=== PATIENT | male | born 1970 | race Caucasian/White ===

== ENCOUNTER 2024-04-03 07:04 | Inpatient (IN) | payer BC, SELFPAY ==
[2024-04-03] VITALS (20 sets, daily range): BP systolic 125–146; BP diastolic 71–95; PULSE 75–101; TEMP 36.5–36.9; O2SAT 89–98; BMI 37.0; BMI 35.2
--- NOTE | 2024-04-03 07:22 | ECG_ITS ---
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
--- NOTE | 2024-04-03 07:22 | XR_ITS ---
The [address] [address] Patient Name: ОЛЬГА KEBEDE MRN: [id number] date: 1970 Sex: M Assigned Patient Location: ER Current Patient Location: ED.MAIN Accession/Order Number: [id number] Exam Date: 04/03/2024 07:30 Report Date: 04/03/2024 07:54 At the request of: GEGE SZYMANSKI Procedure: XR chest 1V EXAMINATION: XR chest 1V HISTORY: SOB COMPARISON: No relevant comparison available. FINDINGS: LUNGS: Underexpanded lungs with bibasilar opacities, mild on right, moderate on left. Elevated left hemidiaphragm. VASCULATURE: No increased pulmonary vasculature. PLEURA: No pneumothorax, effusion, or pleural thickening. CARDIAC: No cardiomegaly or cardiac silhouette abnormality. MEDIASTINUM: No visible mass or adenopathy. BONES: No fracture or visible bone lesion. OTHER: Negative. XR/XR chest 1V IMPRESSION: 1. Moderate left, mild right basilar infiltrates versus atelectasis. Infectious etiology is favored. Electronically authenticated by: RAMAN MEADOWS Date: 04/03/2024 07:54
--- NOTE | 2024-04-03 07:23 | ED.SOB1 ---
HPI - SOB/Dyspnea General Chief Complaint: Shortness of Breath/Dyspnea Stated Complaint: SOB, SIDE PAINS, IS LUNG PATIENT Time Seen by Provider: 04/03/24 07:18 History of Present Illness HPI Narrative: 53-year-old male presents for shortness of breath. He has had 4 days of slowly progressive cough and shortness of breath. He has been coughing up green phlegm. He states he is very susceptible to bacterial infections and last year had to be intubated and he states he almost . He also has a history of a collapsed lung which almost killed him as well. He has not had a known fever and has not had hemoptysis. He quit smoking in 1995. He states he has a lung condition but does not know the name but states he was told it is not COPD. Related Data Home Medications ?Medication ?Instructions ?Recorded ?Confirmed albuterol sulfate 2.5 mg/3 mL 2.5 mg inhalation BID 04/03/24 04/03/24 (0.083 %) solution for nebulization montelukast 10 mg tablet 20 mg PO DAILY 04/03/24 04/03/24 prednisone 20 mg tablet 20 mg PO DAILY 04/03/24 04/03/24 Allergies Allergy/AdvReac Type Severity Reaction Status Date / Time Penicillins AdvReac Mild Rash Verified 04/03/24 07:40 Review of Systems ROS Narrative A ten point review of systems is negative except as noted above. Exam Narrative Exam Narrative: Nurses note and vital signs reviewed and patient is not hypoxic. General: The patient appears in no acute respiratory distress, he does appear mildly dyspneic Skin: Warm, dry, no pallor noted. There is no rash noted. Head: Normocephalic, atraumatic Eye: Normal conjunctiva, no drainage Ears, Nose, Mouth, and Throat: oral mucosa is moist. Nares patent. Cardiovascular: Regular Rate and Rhythm Respiratory: A few rhonchi are present, breath sounds seem diminished on the left side Back: non-tender GI: Soft and nontender Musculoskeletal: The patient has no evidence of calf tenderness, no pitting edema, symmetrical pulses noted bilaterally Neurological: A&O, normal speech Psychiatric: Cooperative Constitutional Vital Signs, click to edit/add: Last Vital Signs Temp 98.5 F 04/03/24 07:34 Pulse 92 H 04/03/24 07:54 Resp 25 H 04/03/24 07:54 BP 133/76 04/03/24 07:34 Pulse Ox 98 04/03/24 07:54 O2 Del Method Room Air 04/03/24 07:54 Course Vital Signs Vital signs: Vital Signs Temperature 98.5 F 04/03/24 07:34 Pulse Rate 94 H 04/03/24 07:34 Respiratory Rate 24 H 04/03/24 07:34 Blood Pressure 133/76 04/03/24 07:34 Pulse Oximetry 95 04/03/24 07:34 Oxygen Delivery Method Room Air 04/03/24 07:34 Temperature 98.5 F 04/03/24 07:34 Pulse Rate 92 H 04/03/24 07:54 Respiratory Rate 25 H 04/03/24 07:54 Blood Pressure 133/76 04/03/24 07:34 Pulse Oximetry 98 04/03/24 07:54 Oxygen Delivery Method Room Air 04/03/24 07:54 MDM - SOB/Dyspnea MDM Narrative Medical decision making narrative: Pneumonia is identified on his x-ray, no evidence of pneumothorax. Blood cultures were obtained and then he was given IV Rocephin and Zithromax. Initial lactic acid is 2.4. He has an extensive history of pneumonia and pneumothorax and intubation and spent approximately 40 days in the hospital for these issues last fall. There is no previous chest x-ray for comparison purposes. Findings were discussed with the patient and he is being admitted for IV antibiotics. Differential Diagnosis Differential diagnosis: Likely acute exacerbation of chronic obstructive airways disease, congestive heart failure, community acquired pneumonia and other (Pneumothorax) Lab Data Attestation: I reviewed the patient's lab results. Labs: Lab Results 04/03/24 04/03/24 Range/Units 07:25 07:27 WBC 14.5 H (4.0-11.0) 10^3/uL RBC 3.61 L (4.70-6.10) 10^6/uL Hgb 11.2 L (14.0-18.0) g/dL Hct 34.8 L (42.0-54.0) % MCV 96.4 H (80.0-94.0) fL MCH 31.0 (25.9-34.0) pg MCHC 32.2 (29.9-35.2) g/dL RDW 12.9 (11.0-15.0) % Plt Count 338 (150-450) 10^3/uL MPV 10.8 (9.5-13.5) fL Neut % (Auto) 84.0 H (43.0-75.0) % Lymph % (Auto) 6.2 L (20.5-60.0) % [place] % (Auto) 8.5 (1.7-12.0) % Eos % (Auto) 0.5 L (0.9-7.0) % Baso % (Auto) 0.3 (0.2-2.0) % Neut # (Auto) 12.2 H (1.4-6.5) 10^3/uL Lymph # (Auto) 0.9 L (1.2-3.8) 10^3/uL [place] # (Auto) 1.2 H (0.3-0.8) 10^3/uL Eos # (Auto) 0.1 (0.0-0.7) 10^3/uL Baso # (Auto) 0.1 (0.0-0.1) 10^3/uL Abs Immat Gran (auto) 0.07 H (0.00-0.03) 10^3/uL Imm/Tot Granulo (auto) 0.5 (0.0-0.5) % Sodium 137 (136-145) mmol/L Potassium 3.8 (3.5-5.1) mmol/L Chloride 98 (98-107) mmol/L Carbon Dioxide 28.7 (21.0-32.0) mmol/L Anion Gap 14.1 BUN 14.0 (7.0-18.0) mg/dL Creatinine 1.31 H (0.70-1.30) mg/dL Est GFR ( Amer) >60 (>=60) Est GFR (Non-Af Amer) 57 L (>=60) BUN/Creatinine Ratio 10.7 Glucose 164 H (74-106) mg/dL Lactate 2.4 H* (0.4-2.0) mmol/L Calcium 8.9 (8.5-10.1) mg/dL Troponin I High Sens 26.8 (4.0-76.1) pg/mL SARS-CoV-2 Ag (CV2AG) Negative (NEGATIVE) Imaging Data Chest x-ray: Radiologist's impression: ITS Impressions Chest X-Ray 04/03/24 07:22 IMPRESSION: 1. Moderate left, mild right basilar infiltrates versus atelectasis. Infectious etiology is favored. Electronically authenticated by: RAMAN MEADOWS Date: 04/03/2024 07:54 ECG Data Attestation: I personally reviewed and interpreted this ECG as follows: (EKG on my interpretation shows sinus rhythm with a rate of 97 and no acute change) Discharge Plan Discharge Chief Complaint: Shortness of Breath/Dyspnea Clinical Impression: Pneumonia Patient Disposition: Admitted As Inpatient Time of Disposition Decision: 08:04 Condition: Fair
[2024-04-03] MEDS: CEFTRIAXONE 1,000 MG in 0.9 % SODIUM CHLORIDE 50 ML 100 MG IV (07:44)
[2024-04-03 07:49] LABS: Basophils Absolute Auto 0.1 10^3/uL (0.0-0.1); Basophils Percent Auto 0.3 % (0.2-2.0); Eosinophils Absolute Auto 0.1 10^3/uL (0.0-0.7); Eosinophils Percent Auto 0.5 % (0.9-7.0); Hematocrit 34.8 % (42.0-54.0); Hemoglobin 11.2 g/dL (14.0-18.0); Immature Granulocytes Abs Auto 0.07 10^3/uL (0.00-0.03); Immature Granulocytes Pct Auto 0.5 % (0.0-0.5); Lymphocytes Absolute Auto 0.9 10^3/uL (1.2-3.8); Lymphocytes Percent Auto 6.2 % (20.5-60.0); Mean Corpuscular HGB Conc 32.2 g/dL (29.9-35.2); Mean Corpuscular Volume 96.4 fL (80.0-94.0); Mean Platelet Volume 10.8 fL (9.5-13.5); Monocytes Absolute Auto 1.2 10^3/uL (0.3-0.8); Monocytes Percent Auto 8.5 % (1.7-12.0); Neutrophils Absolute Auto 12.2 10^3/uL (1.4-6.5); Platelet Count 338 10^3/uL (150-450); Red Blood Count 3.61 10^6/uL (4.70-6.10); Red Cell Distribution Width 12.9 % (11.0-15.0); White Blood Count 14.5 10^3/uL (4.0-11.0)
[2024-04-03] MEDS: ALBUTEROL SULFATE 2.5 MG/3 ML VIAL NEB IH (07:53)
[2024-04-03 08:01] LABS: Anion Gap 14.1; BUN Creatinine Ratio 10.7; Calcium 8.9 mg/dL (8.5-10.1); Carbon Dioxide 28.7 mmol/L (21.0-32.0); Chloride 98 mmol/L (98-107); Estimated GFR (African America >60 (>=60); Estimated GFR (Non-African Ame 57 (>=60); Glucose 164 mg/dL (74-106); Potassium 3.8 mmol/L (3.5-5.1); Sodium 137 mmol/L (136-145); Troponin I High Sensitivity 26.8 pg/mL (4.0-76.1)
[2024-04-03 08:02] LABS: Lactate/Lactic Acid 2.4 mmol/L (0.4-2.0)
[2024-04-03 08:04] LABS: Internal Control Within Normal Limits; SARS-CoV-2 Ag NEGATIVE (NEGATIVE)
[2024-04-03] MEDS: AZITHROMYCIN 500 MG in 0.9 % SODIUM CHLORIDE 250 ML 250 MG IV (08:12)
--- NOTE | 2024-04-03 08:24 | PM.HP ---
HPI H&P: HPI History of Present Illness Chief complaint: PNEUMONIA Narrative: Patient is a 53 y.o white male with past medical history of Aspergillus, Asthma and chronic inflammation. He was in [facility] in [place] in jun 2023 after having a spontaneous pneumothorax on the left, which led to a chest tube complication and further pneumonia and aspergillus findings. She spend about 20 days at [facility], and was transferred to [facility] for another 20days. Since that time, he denies hospitalizations. He follows regularly with Dr. Romero of Pulmonary in [place]. I have personally called Dr. Romero's office but he is on vacation this week. Patient has been getting Xolair every 2 weeks, he takes daily singular and prednisone for an asthma/inflammatory asthma type. He notes he was treated for 3 months on an antifungal for his Aspergillus after hospitalization in Jun, finishing that in November. He is currently on a job site here in [place]. He works on the [employer]. He developed a cough, productive over the weekend. Yesterday worked all day and became short of breath, started having left back and side pain, denies fevers or chills but says he sweats easily. He came to the ER early this morning. He has not been using his albuterol inhaler. ER findings: CXR: Left > Right opacities signifying pneumonia, WBC's 14.5, HB 11.2 Cr 1.31, Lactate elevated 2.4, normal Trop 26. Patient was given nebulizer treatment, rocephin and azithromycin and admitted to the hospitalist service for further plan of care. At the time of admission patient is short of breath when talking. He had active green sputum production after coughing and became diaphoretic after coughing. He denies fevers or chills. Still says the left side of chest wall and back are having pain with coughing. He denies chest pain/midsternal. No n/v/d. Opioid HPI Opioid Management Most Recent Pain and Opioid Data: Last Pain Assessment 04/03/24 08:58 Last ORT Total Score 4 04/03/24 08:58 Last ORT Risk Category Moderate Risk 04/03/24 08:58 Review of Systems ROS Narrative ROS: a complete review of systems were reviewed with patient and are positive as below or listed in History of Chief Complaint. General: no fever, chills, night sweats Head: no headache, trauma, visual changes, nausea or vomiting Skin: no reported rashes, itching or sores Eyes: no blurriness of vision Ears: no reported hearing loss, vertigo, earache, or tinnitus Throat: no sore throat, hoarseness, swelling of neck, or tongue pain Heart: no chest pain, but left sided chest wall pain, low back on left Lungs: shortness of breath and productive cough GI: no diarrhea or vomiting/nausea Urinary: no urinary urgency, frequency or pain Neuro: no numbness or tingling HEM: no bleeding issues or bruising ENDO: no thyroid problems Psych: no anxiety or depression [facility] Medical History (Updated 04/03/24 @ 11:21 by Jada Lu DO) Aspergillosis, unspecified ?B44.9 - Aspergillosis, unspecified (ICD-10) Collapse, lung ?J98.19 - Other pulmonary collapse (ICD-10) 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.0 - Bronchitis and pneumonitis due to chemicals, gases, fumes and vapors (ICD-10) Allergic asthma ?J45.909 - Unspecified asthma, uncomplicated (ICD-10) Surgical History H/O hernia repair ?Z98.890 - Other specified postprocedural states (ICD-10) ?Z87.19 - Personal history of other diseases of the digestive system (ICD-10) Family History Father Family history of cancer Family history of hypertension Family history of myocardial infarction Family history of stroke Social History Within the past year, how often did you have a drink containing alcohol: monthly or less Smoking status: Former smoker Non-prescribed substance use: denies use Highest level of school completed/degree received: high school graduate Meds Home Medications and Allergies Home Medications ?Medication ?Instructions ?Recorded ?Confirmed ?Type albuterol sulfate 2.5 mg/3 mL 2.5 mg inhalation BID 04/03/24 04/03/24 History (0.083 %) solution for nebulization montelukast 10 mg tablet 10 mg PO .QHS 04/03/24 04/03/24 History omalizumab 150 mg subcutaneous 225 mg subcut .twice monthly 04/03/24 04/03/24 History solution (Xolair) prednisone 20 mg tablet 20 mg PO DAILY 04/03/24 04/03/24 History Allergies Allergy/AdvReac Type Severity Reaction Status Date / Time Penicillins AdvReac Mild Rash Verified 04/03/24 07:40 Exam Narrative Exam Narrative: General: Patient is alert, and oriented to person, place and time with normal affect, proper hygiene, patient is short of breath when conversing and is diaphoretic after coughing. Skin: no visible rashes, or ulcers Head: atraumatic, acephalic Eyes: PERRLA, no nystagmus present, conjunctiva clear, no scleral icterus Ears: normal gross auditory acuity Neck: no masses palpated, normal thyroid Heart: Normal rate and rhythm, no murmurs/rubs/gallops Lungs: audible wheezes, with diminished breath sounds LLL Abdomen: Normal audible bowel sounds, no distension, No palpable masses, no organomegaly, no rebound/guarding/ or rigidity Musculoskeletal: no swelling bilateral lower extremities Neuro: CN II-X grossly intact Constitutional Vital Signs, click to edit/add: Last Vital Signs Temp 98.5 F 04/03/24 07:34 Pulse 92 H 04/03/24 07:54 Resp 25 H 04/03/24 07:54 BP 138/95 H 04/03/24 08:00 Pulse Ox 98 04/03/24 07:54 O2 Del Method Room Air 04/03/24 07:54 Results Labs Labs: Short CBC 04/03/24 Range/Units 07:25 WBC 14.5 H (4.0-11.0) 10^3/uL Hgb 11.2 L (14.0-18.0) g/dL Hct 34.8 L (42.0-54.0) % Plt Count 338 (150-450) 10^3/uL BMP 04/03/24 07:25 Sodium 137 Potassium 3.8 Chloride 98 Carbon Dioxide 28.7 BUN 14.0 Creatinine 1.31 H Glucose 164 H Calcium 8.9 Assessment and Plan Assessment and Plan (1) LLL pneumonia: Assessment and Plan: as seen on cxr L>R opacities. monitor oxygen saturations closely to maintain >90%. Duonebs scheduled q6 hours, pulmicort inh BID, as needed albuterol and OPEP. I have placed on levaquin 750mg daily and rocephin 1gram daily. Patient with leukocytosis and elevated lactate, tachycardia. Sputum culture ordered, blood cultures ordered. UA negative. I discussed with patient low threshold of checking chest CT given his history and severity of previous symptoms. Qualifiers: Pneumonia type: due to unspecified organism Qualified Code(s): J18.9 - Pneumonia, unspecified organism (2) Severe sepsis: Assessment and Plan: secondary to #1: leukocytosis 14.5, Tachycardia >100, elevated lactate 2.4. Given fluids in the ER, continue with IVF hydration. blood, sputum and UA obtained. Afebrile currently. continue Levoquin and Rocephin. 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 (3) Allergic asthma: Assessment and Plan: added Solumedrol 40mg q6 hours Qualifiers: Asthma severity: moderate Asthma persistence: persistent Asthma complication type: with acute exacerbation Qualified Code(s): J45.41 - Moderate persistent asthma with (acute) exacerbation (4) Aspergillosis, unspecified: Assessment and Plan: history of Plan patient is a full code Lovenox for DVT prophylaxis Patient is inpatient status and is expected to stay 2-3 days given severity of pneumonia, sepsis, and need for medical necessary treatment.
[2024-04-03] MEDS: LACTATED RINGER'S SOLUTION 1,000 ML 125 ML IV ×2 (09:55→18:16)
[2024-04-03] MEDS: ENOXAPARIN SODIUM 40 MG/0.4 ML SYRINGE SUBQ (09:56)
[2024-04-03] MEDS: LEVOFLOXACIN IN DEXTROSE 5 % 750 MG/150 ML IV.SOLN 100 MG IV (09:57)
[2024-04-03] MEDS: IPRATROPIUM/ALBUTEROL SULFATE 3 ML AMPUL.NEB IH ×3 (10:29→23:19)
[2024-04-03] MEDS: BUDESONIDE 0.5 MG/2 ML AMPULE NEB IH ×2 (10:29→23:19)
--- NOTE | 2024-04-03 10:56 | CM.NOTE ---
Rounds made with Dr. Lu. Mr. Sidhu reviews trigger events and symptoms with Dr. Lu. Dr. Lu discusses plan of care with Mr. Sidhu. Mr. Sidhu in agreement with plan.
[2024-04-03 11:01] LABS: Lactate/Lactic Acid 2.4 mmol/L (0.4-2.0)
[2024-04-03] MEDS: METHYLPREDNISOLONE SOD SUCC PF 40 MG/ML VIAL IVP ×3 (11:51→23:23)
[2024-04-03 13:43] LABS: Lactate/Lactic Acid 2.3 mmol/L (0.4-2.0)
[2024-04-03 16:03] LABS: Bilirubin Urine NEGATIVE (NEGATIVE); Blood Urine NEGATIVE (NEGATIVE); Clarity Urine CLEAR (CLEAR); Color Urine YELLOW (YELLOW); Glucose Urine UA 500 mg/dL (NEGATIVE); Ketones Urine NEGATIVE (NEGATIVE); Leukocyte Esterase Urine NEGATIVE (NEGATIVE); Nitrite Urine NEGATIVE (NEGATIVE); Protein Urine NEGATIVE (NEG/TRACE); Specific Gravity Urine 1.025 (1.005-1.025); Urobilinogen Urine 0.2 EU/dL (0.2-1.0)
[2024-04-03 17:25] LABS: Urine Microscopic Indicated NO
[2024-04-03] MEDS: MONTELUKAST SODIUM 10 MG TABLET PO (21:31)
[2024-04-03] MEDS: GUAIFENESIN 200 MG/DEXTROMETHORPHAN 20 MG 10 ML UNIT DOSE CUP PO (23:23)
[2024-04-04] VITALS (19 sets, daily range): BP systolic 130–149; BP diastolic 72–80; PULSE 75–105; TEMP 36.4–36.8; O2SAT 90–96
[2024-04-04] MEDS: LACTATED RINGER'S SOLUTION 1,000 ML 125 ML IV ×4 (01:29→23:35)
[2024-04-04] MEDS: IPRATROPIUM/ALBUTEROL SULFATE 3 ML AMPUL.NEB IH ×4 (05:00→23:20)
[2024-04-04] MEDS: METHYLPREDNISOLONE SOD SUCC PF 40 MG/ML VIAL IVP ×4 (05:20→23:35)
[2024-04-04 05:30] LABS: Basophils Percent Auto 0.1 % (0.2-2.0); Hematocrit 31.4 % (42.0-54.0); Immature Granulocytes Abs Auto 0.05 10^3/uL (0.00-0.03); Immature Granulocytes Pct Auto 0.6 % (0.0-0.5); Lymphocytes Absolute Auto 0.5 10^3/uL (1.2-3.8); Lymphocytes Percent Auto 5.7 % (20.5-60.0); Mean Corpuscular HGB Conc 31.8 g/dL (29.9-35.2); Mean Corpuscular Hemoglobin 30.6 pg (25.9-34.0); Mean Platelet Volume 10.7 fL (9.5-13.5); Monocytes Absolute Auto 0.5 10^3/uL (0.3-0.8); Neutrophils Percent Auto 88.6 % (43.0-75.0); Platelet Count 304 10^3/uL (150-450); Red Blood Count 3.27 10^6/uL (4.70-6.10); Red Cell Distribution Width 12.9 % (11.0-15.0); White Blood Count 9.1 10^3/uL (4.0-11.0)
[2024-04-04 05:50] LABS: Alanine Aminotransferase 17 U/L (16-63); Albumin Globulin Ratio 0.5; Albumin Level 2.3 g/dL (3.4-5.0); Alkaline Phosphatase 95 U/L (46-116); Anion Gap 10.3; Aspartate Amino Transferase 14 U/L (15-37); BUN Creatinine Ratio 13.7; Bilirubin Total 0.4 mg/dL (0.2-1.0); Calcium 8.7 mg/dL (8.5-10.1); Carbon Dioxide 27.8 mmol/L (21.0-32.0); Chloride 101 mmol/L (98-107); Estimated GFR (African America >60 (>=60); Estimated GFR (Non-African Ame >60 (>=60); Glucose 142 mg/dL (74-106); Potassium 4.1 mmol/L (3.5-5.1); Sodium 135 mmol/L (136-145); Total Protein 7.3 g/dL (6.4-8.2)
[2024-04-04] MEDS: ENOXAPARIN SODIUM 40 MG/0.4 ML SYRINGE SUBQ (08:09)
[2024-04-04] MEDS: CEFTRIAXONE 1,000 MG in 0.9 % SODIUM CHLORIDE 50 ML 100 MG IV (08:09)
--- NOTE | 2024-04-04 09:03 | PM.DS1 ---
DS: Providers Provider Date of admission: 04/03/24 08:30 Primary care physician: Non-Staff Physician DS: Diagnosis Discharge Diagnosis (1) LLL pneumonia: Qualifiers: Pneumonia type: due to unspecified organism Qualified Code(s): J18.9 - Pneumonia, unspecified organism (2) Severe sepsis: (3) Allergic asthma: Qualifiers: Asthma severity: moderate Asthma persistence: persistent Asthma complication type: with acute exacerbation Qualified Code(s): J45.41 - Moderate persistent asthma with (acute) exacerbation (4) Aspergillosis, unspecified: DS: Summary Time Spent with Patient Time attestation: Total time spent providing and/or coordinating discharge services: Exam Constitutional Vital Signs, click to edit/add: Last Vital Signs Temp 97.5 F L 04/04/24 04:26 Pulse 79 04/04/24 08:08 Resp 18 04/04/24 04:26 BP 133/80 04/04/24 04:26 Pulse Ox 96 04/04/24 05:02 O2 Del Method Nasal Cannula 04/04/24 05:02 O2 Flow Rate 2 04/04/24 05:02 DS: Data Data Completed and Pending Labs on day of discharge: Labs from last 24 hours 04/04/24 04/03/24 04/03/24 04:30 15:26 13:08 WBC 9.1 RBC 3.27 L Hgb 10.0 L Hct 31.4 L MCV 96.0 H MCH 30.6 MCHC 31.8 RDW 12.9 Plt Count 304 MPV 10.7 Neut % (Auto) 88.6 H Lymph % (Auto) 5.7 L [place] % (Auto) 5.0 Eos % (Auto) 0.0 L Baso % (Auto) 0.1 L Neut # (Auto) 8.0 H Lymph # (Auto) 0.5 L [place] # (Auto) 0.5 Eos # (Auto) 0.0 Baso # (Auto) 0.0 Abs Immat Gran (auto) 0.05 H Imm/Tot Granulo (auto) 0.6 H Sodium 135 L Potassium 4.1 Chloride 101 Carbon Dioxide 27.8 Anion Gap 10.3 BUN 14.0 Creatinine 1.02 Est GFR ( Amer) >60 Est GFR (Non-Af Amer) >60 BUN/Creatinine Ratio 13.7 Glucose 142 H Lactate 2.3 H* Calcium 8.7 Total Bilirubin 0.4 AST 14 L ALT 17 Alkaline Phosphatase 95 Total Protein 7.3 Albumin 2.3 L Globulin 5.0 Albumin/Globulin Ratio 0.5 Urine Color Yellow Urine Clarity Clear Urine pH 6.0 Ur Specific [place] 1.025 Urine Protein Negative Urine Glucose (UA) 500 A Urine Ketones Negative Urine Occult Blood Negative Urine Nitrite Negative Urine Bilirubin Negative Urine Urobilinogen 0.2 Ur Leukocyte Esterase Negative 04/03/24 10:30 WBC RBC Hgb Hct MCV MCH MCHC RDW Plt Count MPV Neut % (Auto) Lymph % (Auto) [place] % (Auto) Eos % (Auto) Baso % (Auto) Neut # (Auto) Lymph # (Auto) [place] # (Auto) Eos # (Auto) Baso # (Auto) Abs Immat Gran (auto) Imm/Tot Granulo (auto) Sodium Potassium Chloride Carbon Dioxide Anion Gap BUN Creatinine Est GFR ( Amer) Est GFR (Non-Af Amer) BUN/Creatinine Ratio Glucose Lactate 2.4 H* Calcium Total Bilirubin AST ALT Alkaline Phosphatase Total Protein Albumin Globulin Albumin/Globulin Ratio Urine Color Urine Clarity Urine pH Ur Specific [place] Urine Protein Urine Glucose (UA) Urine Ketones Urine Occult Blood Urine Nitrite Urine Bilirubin Urine Urobilinogen Ur Leukocyte Esterase Discharge Plan Discharge Condition: Fair Discharge Medications: No Action albuterol sulfate 2.5 mg /3 mL (0.083 %) solution for nebulization 2.5 mg inhalation BID montelukast 10 mg tablet 10 mg PO .QHS prednisone 20 mg tablet 20 mg PO DAILY Xolair 150 mg recon soln 225 mg subcut .twice monthly Print Language: Norwegian
[2024-04-04] MEDS: LEVOFLOXACIN IN DEXTROSE 5 % 750 MG/150 ML IV.SOLN 100 MG IV (09:44)
[2024-04-04] MEDS: BUDESONIDE 0.5 MG/2 ML AMPULE NEB IH ×2 (10:12→23:20)
--- NOTE | 2024-04-04 11:14 | P.PN_ITS ---
Progress Note: Subjective Subjective Interval history: Patient notes increased cough with productive sputum. He reports just feeling tired. Last night oxygen dropped to 89% and 2L NC was placed on him. He reports similar episodes when he was previously in the hospital and a sleep study was suggested. Still is short of breath with talking. Afebrile, sweats easily with coughing. Exam Narrative Exam Narrative: General: Patient is alert, and oriented to person, place and time with normal affect, proper hygiene, patient is short of breath when conversing and is diaphoretic after coughing. Skin: no visible rashes, or ulcers Head: atraumatic, acephalic Eyes: PERRLA, no nystagmus present, conjunctiva clear, no scleral icterus Ears: normal gross auditory acuity Neck: no masses palpated, normal thyroid Heart: Normal rate and rhythm, no murmurs/rubs/gallops Lungs: audible wheezes, with diminished breath sounds LLL also noted wheezes in left lung Abdomen: Normal audible bowel sounds, no distension, No palpable masses, no organomegaly, no rebound/guarding/ or rigidity Musculoskeletal: no swelling bilateral lower extremities Neuro: CN II-X grossly intact Constitutional Vital Signs, click to edit/add: Last Vital Signs Temp 97.5 F L 04/04/24 04:26 Pulse 96 H 04/04/24 10:13 Resp 18 04/04/24 04:26 BP 133/80 04/04/24 04:26 Pulse Ox 92 L 04/04/24 10:13 O2 Del Method Nasal Cannula 04/04/24 10:13 O2 Flow Rate 1 04/04/24 10:13 Progress Note: Objective Labs Labs: Short CBC 04/04/24 Range/Units 04:30 WBC 9.1 (4.0-11.0) 10^3/uL Hgb 10.0 L (14.0-18.0) g/dL Hct 31.4 L (42.0-54.0) % Plt Count 304 (150-450) 10^3/uL BMP 04/04/24 04:30 Sodium 135 L Potassium 4.1 Chloride 101 Carbon Dioxide 27.8 BUN 14.0 Creatinine 1.02 Glucose 142 H Calcium 8.7 Liver Function 04/04/24 Range/Units 04:30 Total Bilirubin 0.4 (0.2-1.0) mg/dL AST 14 L (15-37) U/L ALT 17 (16-63) U/L Alkaline Phosphatase 95 (46-116) U/L Albumin 2.3 L (3.4-5.0) g/dL Urine 04/03/24 Range/Units 15:26 Urine Color Yellow (YELLOW) Urine Clarity Clear (CLEAR) Urine pH 6.0 (5.0-9.0) Ur Specific [place] 1.025 (1.005-1.025) Urine Protein Negative (NEG/TRACE) mg/dL Urine Glucose (UA) 500 A (NEGATIVE) mg/dL Progress Note: A&P Assessment and Plan (1) LLL pneumonia: Assessment and Plan: as seen on cxr L>R opacities. monitor oxygen saturations closely to maintain >90%. Duonebs scheduled q6 hours, pulmicort inh BID, as needed albuterol and OPEP.continue on levaquin 750mg daily and rocephin 1gram daily. Patient with leukocytosis and elevated lactate, tachycardia. Sputum culture ordered and pending, blood cultures ordered and pending. UA negative. I discussed with patient low threshold of checking chest CT given his history and severity of previous symptoms. WBC's 9.1 today, lactate still elevated. Qualifiers: Pneumonia type: due to unspecified organism Qualified Code(s): J18.9 - Pneumonia, unspecified organism (2) Acute respiratory failure with hypoxia: Assessment and Plan: continue oxygen to maintain stats >90%, not on oxygen chronically, dropped to 88% per nursing although i see nothing documented. (3) Severe sepsis: Assessment and Plan: secondary to #1: leukocytosis 14.5, Tachycardia >100, elevated lactate 3.0. Given fluids in the ER, continue with IVF hydration. blood, sputum and UA obtained and cultures pending. Afebrile currently. continue Levaquin and Rocephin. 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 (4) Allergic asthma: Assessment and Plan: continue Solumedrol 40mg q6 hours Qualifiers: Asthma complication type: with acute exacerbation Asthma persistence: persistent Asthma severity: moderate Qualified Code(s): J45.41 - Moderate persistent asthma with (acute) exacerbation (5) Aspergillosis, allergic bronchopulmonary: Assessment and Plan: treat pneumonia and asthma symptoms Plan patient is a full code Lovenox for DVT prophylaxis Given hypoxia episode, patient still needs 1-2 more days of hospital necessary care.
--- NOTE | 2024-04-04 11:23 | CM.NOTE ---
Rounds made with Dr. Lu. Plan for today to wean oxygen, await Sputum C&S and continue OPeP. Nahum in agreement. No discharge today.
--- NOTE | 2024-04-04 17:20 | RESP.RT ---
to room air at his time
[2024-04-04] MEDS: MONTELUKAST SODIUM 10 MG TABLET PO (21:32)
[2024-04-05] VITALS (11 sets, daily range): BP systolic 139; BP diastolic 76; PULSE 50–108; TEMP 36.4; O2SAT 92–93
[2024-04-05 05:00] LABS: Basophils Percent Auto 0.1 % (0.2-2.0); Hematocrit 30.4 % (42.0-54.0); Hemoglobin 9.5 g/dL (14.0-18.0); Immature Granulocytes Abs Auto 0.08 10^3/uL (0.00-0.03); Immature Granulocytes Pct Auto 0.7 % (0.0-0.5); Lymphocytes Absolute Auto 0.5 10^3/uL (1.2-3.8); Mean Corpuscular HGB Conc 31.3 g/dL (29.9-35.2); Mean Corpuscular Hemoglobin 30.4 pg (25.9-34.0); Mean Corpuscular Volume 97.1 fL (80.0-94.0); Mean Platelet Volume 10.7 fL (9.5-13.5); Monocytes Absolute Auto 0.5 10^3/uL (0.3-0.8); Monocytes Percent Auto 4.4 % (1.7-12.0); Neutrophils Absolute Auto 10.9 10^3/uL (1.4-6.5); Neutrophils Percent Auto 90.8 % (43.0-75.0); Platelet Count 330 10^3/uL (150-450); Red Blood Count 3.13 10^6/uL (4.70-6.10); Red Cell Distribution Width 12.9 % (11.0-15.0)
[2024-04-05 05:20] LABS: Alanine Aminotransferase 17 U/L (16-63); Albumin Globulin Ratio 0.5; Albumin Level 2.2 g/dL (3.4-5.0); Alkaline Phosphatase 88 U/L (46-116); Anion Gap 9.9; Aspartate Amino Transferase 16 U/L (15-37); BUN Creatinine Ratio 15.9; Bilirubin Total 0.2 mg/dL (0.2-1.0); Calcium 8.6 mg/dL (8.5-10.1); Carbon Dioxide 27.3 mmol/L (21.0-32.0); Chloride 104 mmol/L (98-107); Estimated GFR (African America >60 (>=60); Estimated GFR (Non-African Ame >60 (>=60); Globulin 4.5 g/dL; Glucose 131 mg/dL (74-106); Potassium 4.2 mmol/L (3.5-5.1); Sodium 137 mmol/L (136-145); Total Protein 6.7 g/dL (6.4-8.2)
[2024-04-05] MEDS: IPRATROPIUM/ALBUTEROL SULFATE 3 ML AMPUL.NEB IH ×2 (05:32→11:36)
[2024-04-05] MEDS: METHYLPREDNISOLONE SOD SUCC PF 40 MG/ML VIAL IVP ×2 (05:33→11:53)
[2024-04-05] MEDS: ENOXAPARIN SODIUM 40 MG/0.4 ML SYRINGE SUBQ (08:29)
[2024-04-05] MEDS: CEFTRIAXONE 1,000 MG in 0.9 % SODIUM CHLORIDE 50 ML 100 MG IV (08:30)
[2024-04-05] MEDS: LACTATED RINGER'S SOLUTION 1,000 ML 125 ML IV (08:30)
--- NOTE | 2024-04-05 08:35 | P.DS_ITS ---
DS: Providers Provider Date of admission: 04/03/24 08:30 Primary care physician: Non-Staff Physician, Consults: 04/04/24 17:44 Physical Therapy Eval and Treat Routine Reason for consultation: weakness Has provider been notified: No DS: Diagnosis Discharge Diagnosis (1) LLL pneumonia: Qualifiers: Pneumonia type: due to unspecified organism Qualified Code(s): J18.9 - Pneumonia, unspecified organism (2) Acute respiratory failure with hypoxia: (3) Severe sepsis: (4) Allergic asthma: Qualifiers: Asthma complication type: with acute exacerbation Asthma persistence: persistent Asthma severity: moderate Qualified Code(s): J45.41 - Moderate per sistent asthma with (acute) exacerbation (5) Aspergillosis, allergic bronchopulmonary: Plan LLL pneumonia: Improving at the time of discharge (2) Acute respiratory failure with hypoxia: Resolved at the time of discharge (3) Severe sepsis: Assessment and Plan: secondary to #1: leukocytosis 14.5, Tachycardia >100, elevated lactate 3.0. Given fluids in the ER, continue with IVF hydration. Improving at the time of discharge (4) Allergic asthma: Improving at the time of discharge (5) Aspergillosis, allergic bronchopulmonary: Stable at the time of discharge Admission status-patient with illness as outlined above with acute hypoxic respiratory failure and severe sepsis-medically necessary treatment will span 2 midnights. Inpatient status. DS: Summary Hospital Course Hospital Course: Patient was seen and evaluated in the emergency room with fever, leukocytosis, tachycardia, acute hypoxia, positive lactate due to left lower lobe pneumonia causing acute exacerbation of his allergic asthma. Given steroids, IV antibiotics, aerosol treatments. White blood cell count is improving. It is slightly higher than yesterday. This may be her steroid induced. Overall he feels better and has been weaned off of supplemental oxygen. At this point he will be medically stable for discharge to home. Medications see list. Follow- up with me if necessary prior to moving back to his home in [facility] Status at Discharge Overall status at discharge: patient is not back to baseline Time Spent with Patient Time attestation: Total time spent providing and/or coordinating discharge services: Time spent: greater than 30 minutes Exam Narrative Exam Narrative: General: Patient is alert, and oriented to person, place and time with normal affect, proper hygiene, patient is short of breath when conversing and is diaphoretic after coughing. Skin: no visible rashes, or ulcers Head: atraumatic, acephalic Eyes: PERRLA, no nystagmus present, conjunctiva clear, no scleral icterus Ears: normal gross auditory acuity Neck: no masses palpated, normal thyroid Heart: Normal rate and rhythm, no murmurs/rubs/gallops Lungs: No egophony in the left lower lobe, rhonchi left lower lobe persisting Abdomen: Normal audible bowel sounds, no distension, No palpable masses, no organomegaly, no rebound/guarding/ or rigidity Musculoskeletal: no swelling bilateral lower extremities Neuro: CN II-X grossly intact Constitutional Vital Signs, click to edit/add: Last Vital Signs Temp 97.6 F 04/05/24 05:37 Pulse 87 04/05/24 08:00 Resp 18 04/05/24 05:37 BP 139/76 04/05/24 05:37 Pulse Ox 92 L 04/05/24 05:37 O2 Del Method Room Air 04/05/24 05:37 O2 Flow Rate 1 04/04/24 17:16 DS: Data Data Completed and Pending Labs on day of discharge: Labs from last 24 hours 04/05/24 04/04/24 04:04 09:14 WBC 12.0 H RBC 3.13 L Hgb 9.5 L Hct 30.4 L MCV 97.1 H MCH 30.4 MCHC 31.3 RDW 12.9 Plt Count 330 MPV 10.7 Neut % (Auto) 90.8 H Lymph % (Auto) 4.0 L [place] % (Auto) 4.4 Eos % (Auto) 0.0 L Baso % (Auto) 0.1 L Neut # (Auto) 10.9 H Lymph # (Auto) 0.5 L [place] # (Auto) 0.5 Eos # (Auto) 0.0 Baso # (Auto) 0.0 Abs Immat Gran (auto) 0.08 H Imm/Tot Granulo (auto) 0.7 H Sodium 137 Potassium 4.2 Chloride 104 Carbon Dioxide 27.3 Anion Gap 9.9 BUN 17.0 Creatinine 1.07 Est GFR ( Amer) >60 Est GFR (Non-Af Amer) >60 BUN/Creatinine Ratio 15.9 Glucose 131 H Lactate 3.0 H* Calcium 8.6 Total Bilirubin 0.2 AST 16 ALT 17 Alkaline Phosphatase 88 Total Protein 6.7 Albumin 2.2 L Globulin 4.5 Albumin/Globulin Ratio 0.5 Preliminary micro results at discharge 04/03/24 10:30 Sputum Culture - Preliminary Sputum - Expectorated Sputum Staphylococcus aureus Pseudomonas aeruginosa Discharge Plan Discharge Disposition: Home, Self-Care Condition: Fair Discharge Medications: New prednisone 10 mg tablet 50 mg PO DAILY Qty: 36 0RF Rx Instructions: 5/day for 3 days. 4/day for 3 days, 3/day for 3 days, 2/day forever - Maintain your usual 20 mg dose levofloxacin 750 mg tablet 750 mg PO DAILY 10 Days Qty: 10 0RF Continued albuterol sulfate 2.5 mg /3 mL (0.083 %) solution for nebulization 2.5 mg inhalation BID montelukast 10 mg tablet 10 mg PO .QHS prednisone 20 mg tablet 20 mg PO DAILY Xolair 150 mg recon soln 225 mg subcut .twice monthly Activity: resume usual activities as tolerated Diet: advance to your usual diet Print Language: Faroese Patient Instructions: Prednisone (By mouth), Levofloxacin (By mouth) (Levaquin, Levaquin Leva-eric), Sepsis (DC), Pneumonia (DC) Forms: Portal Instructions Follow Up Appointments: Once you are back home establish care with primary care physician and get an appointment. Discharge Date/Time: 04/05/24 13:37
[2024-04-05] MEDS: LEVOFLOXACIN IN DEXTROSE 5 % 750 MG/150 ML IV.SOLN 100 MG IV (10:05)
[2024-04-05] MEDS: BUDESONIDE 0.5 MG/2 ML AMPULE NEB IH (11:36)
--- NOTE | 2024-04-08 15:07 | CM.NOTE ---
Attempted Discharge follow up call without success.
== END 2024-04-05 13:37 | disposition home or self-care (01) | DRG 871 ==
LOC: ER 08:04 → MS 08:35
PROVIDERS: Family Medicine; Admitting Provider Family Medicine; Emergency Provider Emergency Medicine; Visit Provider Family Medicine
DX: A41.9 Sepsis, unspecified organism (principal); J18.9 Pneumonia, unspecified organism; J96.01 Acute respiratory failure with hypoxia; J45.41 Moderate persistent asthma with (acute) exacerbation; R65.20 Severe sepsis without septic shock; Z87.891 Personal history of nicotine dependence; Z79.52 Long term (current) use of systemic steroids; Z79.899 Other long term (current) drug therapy; Z88.0 Allergy status to penicillin; Z87.09 Personal history of other diseases of the respiratory system
CPT/HCPCS: 36415; 71045; 80048; 80053; 81003; 83605; 84145; 84484; 85025; 87040; 87070; 87150; 87186; 87205; 87811; 93005; 94640; 94667; 94668; 94761; 96365; 96366; 96368; 96372; 96375; 96376; 99285; J0456; J0696; J1650; J2919